=== PATIENT | female | born 2000 | race Caucasian/White ===

== ENCOUNTER 2023-02-19 05:12 | Day surgery (SDC) | payer OTHER, MEDICAID ==
[2023-02-14 13:14] LABS: BASOPHILS # (AUTO) 0.1 X10'3 (0-0.2); BASOPHILS % (AUTO) 1.2 % (0-1); EOSINOPHILS # (AUTO) 0.1 X10'3 (0-0.9); EOSINOPHILS % (AUTO) 2.3 % (0-6); LYMPHOCYTES # (AUTO) 1.3 X10'3 (1.1-4.8); LYMPHOCYTES % (AUTO) 23.8 % (21-51); MEAN CORPUSCULAR HEMOGLOBIN 28.1 PG (27.0-31.0); MEAN CORPUSCULAR HGB CONC 34.1 g/dL (33.0-36.5); MEAN CORPUSCULAR VOLUME 82.5 FL (78-98); MEAN PLATELET VOLUME 8.1 FL (7.4-10.4); MONOCYTES # (AUTO) 0.6 X10'3 (0-0.9); MONOCYTES % (AUTO) 11.6 % (2-12); NEUTROPHILS # (AUTO) 3.3 X10'3 (1.8-7.7); NEUTROPHILS % (AUTO) 61.1 % (42-75); PRE OP HEMATOCRIT 38.1 % (35.0-45.0); PRE OP PLATELET COUNT 233 X10'3 (140-440); RED BLOOD COUNT 4.62 X10'6 (4.20-5.60); RED CELL DISTRIBUTION WIDTH 12.9 % (11.5-14.5)
[2023-02-14 13:34] LABS: ALBUMIN 4.1 G/DL (3.4-5.0); ALBUMIN/GLOBULIN RATIO 1.5 (1.1-1.5); ALKALINE PHOSPHATASE 48 IU/L (46-116); BLOOD UREA NITROGEN 13 MG/DL (7-18); BUN/CREATININE RATIO 15.1 (10.0-20.0); CALCIUM 8.8 MG/DL (8.5-10.1); CHLORIDE 109 MMOL/L (99-107); CREATININE 0.86 MG/DL (0.40-0.90); PRE OP ALT 11 U/L (30-65); PRE OP ANION GAP 8 (8-16); PRE OP AST 12 U/L (10-37); PRE OP BILIRUB, TOTAL 0.5 MG/DL (0.0-1.0); PRE OP GLUCOSE 72 MG/DL (70-104); PRE OP POTASSIUM 3.7 MMOL/L (3.4-5.1); PRE OP SODIUM 141 MMOL/L (135-145); TOTAL CARBON DIOXIDE 24.1 MMOL/L (24-32); TOTAL PROTEIN 6.8 G/DL (6.4-8.2); eGFR 83 ML/MIN
[2023-02-19] VITALS (7 sets, daily range): BP systolic 87–106; BP diastolic 54–75
[~2023-02-19] VITALS: Ht 154.9 cm; Wt 54.3 kg
[~2023-02-19 05:12] MED LIST: BUSP15TA3 PO; DIVA250T15 PO; RISP1TAB98 PO; ringers solution, lacted 1,000 ML IV SCH
[2023-02-19] MEDS ORDERED: famotidine 20mg tablet PO ONE (05:30)
[2023-02-19] MEDS ORDERED: clindamycin-Cleocin 900mg/D5W 50 ML IV ONE (05:30)
[2023-02-19] MEDS ORDERED: CARI1.5C PO (06:23)
[2023-02-19] MEDS ORDERED: BUPIVAcaine/PF 2.5 mg/ml (0.25%) 30ml vial ONE (06:40)
[2023-02-19] MEDS ORDERED: fentaNYL/PF 50MCG/1 ML 2ML syringe ONE (07:15)
[2023-02-19] MEDS ORDERED: MIDAZolam 1 MG/ML 5ML VIAL ONE (07:15)
[2023-02-19] MEDS ORDERED: dexamethasone sod phosphate 4mg/ml inj. ONE (07:15)
[2023-02-19] MEDS ORDERED: LIDOcaine 2% (20mg/ml) 5ml vial ONE (07:16)
[2023-02-19] MEDS ORDERED: propofol inj 20 ML IV ONE (07:16)
[2023-02-19] MEDS ORDERED: hydrALAZINE 20mg/ml inj. IV PRN (07:20)
[2023-02-19] MEDS ORDERED: labetalol 20mg/4ml (5mg/ml) syringe IV PRN (07:20)
[2023-02-19] MEDS ORDERED: fentaNYL/PF 50MCG/1 ML 2ML syringe IV PRN ×2 (07:20)
[2023-02-19] MEDS ORDERED: ringers solution, lacted 1,000 ML IV SCH (07:20)
[2023-02-19] MEDS ORDERED: ondansetron/PF 4mg/2ml inj IV PRN (07:20)
[2023-02-19] MEDS ORDERED: ROPIVAcaine 0.2% (10 MG/5 ML) BOLUS INJECTION INTERSCALE PRN (07:20)
[2023-02-19] MEDS ORDERED: morphine 2 MG/ML inj. syringe IV PRN (07:20)
[2023-02-19] MEDS ORDERED: morphine 4 MG/ML inj SYRINge IV PRN (07:20)
[2023-02-19] MEDS ORDERED: ROPIVAcaine 0.2%/PF PUMP/bolus 545 ML INTERSCALE SCH (07:20)
[2023-02-19] MEDS ORDERED: sevoflurane 250ml liquid IH ONE (07:28)
[2023-02-19] MEDS ORDERED: ondansetron/PF 4mg/2ml inj ONE (07:28)
[2023-02-19] MEDS ORDERED: BUPIVAcaine 0.5% inj/PF 30 ml vial IJ ONE (07:30)
--- NOTE | 2023-02-19 09:22 | NUR ---
Received from OR via , accompanied by Anesthesiologist and report given by Anesthesiolgist, DR. ESCALERA. PATIENT [id number]&OX4, DENIES PAIN, V/S WNL, SCD ON , PIV 20G R.HAND, DRESSING SHOULDER WRAP TO LEFT SIDE CDI W/ ONQ AT 2ML/HR AND COLD POWDER PACK
--- NOTE | 2023-02-19 10:52 | NUR ---
I HAVE REVIEWED D/C INSTRUCTIONS WITH PATIENT AND THEY HAVE VERBALIZED UNDERSTANDING OF INSTRUCTIONS. PATIENT D/C HOME WITH ALL BELONGINGS AND FAMILY GAVE TRANSPORT
== END 2023-02-19 10:52 | disposition home or self-care (01) ==
LOC: PAS 05:12
PROVIDERS: ATTEND Orthopaedic Surgery
DX: M24.412 Recurrent dislocation, left shoulder (principal); M25.312 Other instability, left shoulder; S43.432A Superior glenoid labrum lesion of left shoulder, initial encounter; Q79.60 Ehlers-Danlos syndrome, unspecified; M41.9 Scoliosis, unspecified; M16.9 Osteoarthritis of hip, unspecified; M19.072 Primary osteoarthritis, left ankle and foot; G89.18 Other acute postprocedural pain; Z86.14 Personal history of Methicillin resistant Staphylococcus aureus infection; Z90.5 Acquired absence of kidney; Z98.890 Other specified postprocedural states; Z88.0 Allergy status to penicillin; Z88.2 Allergy status to sulfonamides; Z88.8 Allergy status to other drugs, medicaments and biological substances; Z79.899 Other long term (current) drug therapy; Z83.3 Family history of diabetes mellitus; X58.XXXA Exposure to other specified factors, initial encounter; Y93.89 Activity, other specified; Y92.89 Other specified places as the place of occurrence of the external cause; Y99.8 Other external cause status
CPT/HCPCS: 29806; 36415; 64416; 80053; 82948; 85025; 93005; C1713; J1100; J2250; J2405; J2704; J2795; J3010; J3490; J7120; Z7506; Z7508; Z7512; A4565; A4618; A4649; A6253; A6449; A7000; S0020